=== PATIENT | female | born 1965 | race Caucasian/White ===

== ENCOUNTER 2017-06-13 15:00 | Outpatient (RCR) | payer BC ==
[~2017-06-13 15:00] MED LIST: ADVAIR DISKUS1 DS1 IH; ALLEGRA60 M1 PO; ANTIBIOTIC; BENADRYL25 M1 PO; SINGULAIR; SUDAFED 12HR120 MG PO; SUDAFED60 MG PO
== END 2017-06-22 12:48 ==
LOC: WSPT 15:00
DX: S93.492A Sprain of other ligament of left ankle, initial encounter (principal)

== ENCOUNTER → 2020-12-11 | Outpatient (CLI) | payer BC | LOC: MC.RAD 08:37 | DX: Z12.31 Encounter for screening mammogram for malignant neoplasm of breast (principal) ==